=== PATIENT | male | born 1965 | race Caucasian/White ===

== ENCOUNTER 2018-04-17 09:32 | Emergency (ER) | payer SELFPAY ==
[~2018-04-17] VITALS: Ht 175.3 cm; Wt 77.1 kg
[2018-04-17] MEDS ORDERED: ONDANSETRON HCL INJ 2 MG/ML VIAL IV STA (09:58)
[2018-04-17] MEDS ORDERED: MORPHINE SULFATE 2 MG/ML SYR IV STA (09:58)
[2018-04-17 10:40] LABS: BASOPHILS % 0.2 % (0.0-1.0); EOSINOPHILS # (AUTO) 0.1 (0.0-0.4); EOSINOPHILS % 0.8 % (0.0-6.0); HEMATOCRIT 37.2 % (38.2-49.6); HEMOGLOBIN 12.7 g/dL (14.0-18.0); LYMPHOCYTES # (AUTO) 1.6 (1.0-3.2); LYMPHOCYTES % 18.5 % (18.0-39.1); MEAN CORPUSCULAR HEMOGLOBIN 30.7 pg (28-32); MEAN CORPUSCULAR HGB CONC 34.1 g/dL (31-35); MEAN CORPUSCULAR VOLUME 89.9 fL (81-99); MONOCYTES # (AUTO) 0.5 (0.2-0.8); MONOCYTES % 5.8 % (4.4-11.3); NEUTROPHILS # (AUTO) 6.3 (2.1-6.9); NEUTROPHILS % 74.5 % (38.7-80.0); PLATELET COUNT 204 x10e3/uL (140-360); RED BLOOD COUNT 4.14 x10e6/uL (4.3-5.7); RED CELL DISTRIBUTION WIDTH 13.6 % (11.7-14.4)
[2018-04-17 11:03] LABS: ALANINE AMINOTRANSFERASE 15 IU/L (0-55); ALBUMIN 3.7 g/dL (3.5-5.0); ALBUMIN/GLOBULIN RATIO 1.1 (0.8-2.0); ALKALINE PHOSPHATASE 81 IU/L (40-150); ANION GAP 14.8 mmol/L (8-16); BLOOD UREA NITROGEN 11 mg/dL (7-26); BUN/CREATININE RATIO 12 (6-25); CALCIUM 9.6 mg/dL (8.4-10.2); CARBON DIOXIDE 26 mmol/L (22-29); CHLORIDE 103 mmol/L (98-107); CREATININE, SERUM 0.94 mg/dL (0.72-1.25); EST GLOMERULAR FILTRATION RATE > 60 ML/MIN (60-); GLUCOSE 133 mg/dL (74-118); POTASSIUM 3.8 mmol/L (3.5-5.1); SODIUM 140 mmol/L (136-145)
--- NOTE | 2018-04-17 13:18 | Diagnostic Imaging Report ---
Exam: Head CT without contrast History: Headache, swollen right neck Comparison studies: None. Technique: Head CT: Axial images were obtained from the skull base to the vertex. Coronal and sagittal images reconstructed from the axial data. Head CT: Axial, coronal and sagittal images from the skull base to the thoracic inlet. Coronal and sagittal images reconstructed from the axial data. Dose modulation, iterative reconstruction, and/or weight based adjustment of the mA/kV was utilized to reduce the radiation dose to as low as reasonably achievable. Intravenous contrast: 100 cc of Omnipaque 300. Radiation dose: Findings: Head CT: Scalp: No abnormalities. Bones: See mass, as described below in the neck CT dictation. Brain sulci: Appropriate for age. Ventricles: Normal in size and configuration. No hydrocephalus. Extra-axial spaces: Local extension of nasopharyngeal mass to the right cavernous sinus as described below. No fluid collection.. Parenchyma: No abnormal densities. No masses, acute hemorrhage, acute or chronic vascular insults. Sellar/suprasellar region: No abnormalities. Craniocervical junction: Patent foramen magnum.. No Chiari one malformation. Neck CT: Mass: Right nasopharyngeal mass centered along the right fossa of Rosenmuller is difficult to measure by CT but measures approximately 4.3 x 4.7 x 5.0 cm (SI x AP x TV). Mass erodes the adjacent right petrous temporal bone, basisphenoid clivus, right basiocciput and extends into the right cavernous sinus where it encases and narrows narrows the right cavernous segment of the right internal carotid artery. Mass extends anteriorly into the adjacent right sphenoid sinus. There are reactive sclerotic changes in the right occipital condyle and Tumor extends posteriorly to the right jugular foramen and hypoglossal canal. Right Meckel's cave is obliterated by enhancing soft tissue and there is soft tissue enhancement near foramen ovale and in near the level of the foramen rotundum indicative of perineural involvement of the right trigeminal nerve. No enhancing tissue identified within the right pterygopalatine fossa. Lymph nodes: Bilateral suprahyoid cervical lymphadenopathy in ari stations II. A right level IIA lymph node measures up to 2.5 cm. Right level IIB lymph nodes measure up to 3.5 cm. There is a cystic/necrotic right level IIB lymph node which measures approximately 1.5 cm. A cystic/chr left level IIB lymph node measures 1.3 cm. No other radiographically significant cervical lymphadenopathy. Vessels: Patent carotid and vertebral arteries. Right cavernous ICA is encased by tumor and is mildly narrowed. Patent internal jugular veins. Thyroid gland: Ill-defined 1.7 cm heterogeneous nodule adjacent to or within the right inferior thyroid lobe posteriorly. No other nodule identified by CT. Remaining thyroid lobe. Submandibular and parotid glands: Homogeneous, normal in size, no mass. Orbits: No abnormalities. Paranasal sinuses: Tumor extends to the right sphenoid sinus. There is nonspecific mucosal thickening in the bilateral sphenoid sinuses. The remaining sinuses are clear. Temporal bones: Tumor erodes the right petrous bone. The right middle ear and mastoids are opacified due to eustachian tube obstruction. Left middle ear mastoid cavities are clear. Skull base and facial bones: See mass above. Dentition: Dental caries with associated multifocal periodontal disease. Cervical spine: Straightened cervical curvature. Mildly degenerated C4-C5 and C5-C6 discs. Uncovertebral arthrosis results in moderate left and mild right foraminal stenosis at C4-C5 and moderate bilateral foraminal stenosis at C5-C6. No significant canal stenosis. IMPRESSION: Neck CT: 1. 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 Right cavernous ICA segment encased and narrowed by tumor. 2. Bilateral suprahyoid cervical lymphadenopathy. 3. Right middle ear and mastoid opacification due to eustachian tube eustachian tube obstruction by mass. 4. Nodule within or adjacent to the inferior right thyroid lobe. Recommend thyroid ultrasound to further evaluate. Head CT: 1. See nasopharyngeal mass above. 2. Otherwise, no other acute intracranial abnormalities. Recommendation: ENT consultation. Skull base MRI without/with IV contrast to further evaluate when clinically appropriate. Findings and recommendations were discussed with Dr. Manzo follow completion of the exam on 04/17/2018. Signed by: Dr. Phong Jj M.D. on 04/17/2018 1:15 PM
[2018-04-17] MEDS ORDERED: SODIUM CHLORIDE 0.9% 50ML 50 ML ONE ×2 (14:00→14:01)
[2018-04-17] MEDS ORDERED: IOPAMIDOL 370 MG/ML 200 ML INFUS..BTL INJ ONE (14:01)
[2018-04-17 16:13] VITALS: BP 119/77
[2018-04-17] MEDS ORDERED: HYDROCODONE/APAP 10MG-325MG TAB PO ONE (16:30)
== END 2018-04-17 16:33 | disposition home or self-care (01) ==
LOC: ER 09:32
DX: C11.3 Malignant neoplasm of anterior wall of nasopharynx (principal); R51 Headache
CPT/HCPCS: 36415; 70450; 70491; 80053; 85025; 99284; Q9967; J2270; J2405